=== PATIENT | male | born 1970 | race Hispanic/Latino ===

== ENCOUNTER 2017-12-27 10:43 | Inpatient (IN) | payer MEDICAID ==
[2017-12-27 11:03] VITALS: O2SAT 98
--- NOTE | 2017-12-27 12:12 | ED PDOC ---
Psych Transfer Clearance - Clearance Statement Clearance Statement: Reviewed vital signs, lab results and transfer papers. Patient clinically stable for psychiatric admission.
[2017-12-27] MEDS ORDERED: Alum-Mag Hydrox-Simethicone Susp (30 mL) PO PRN (13:39)
[2017-12-27] MEDS ORDERED: DiphenhydrAMINE 50 mg/ml Inj IM PRN (13:39)
[2017-12-27] MEDS ORDERED: Magnesium Hydroxide Susp 30 ml UD PO PRN (13:39)
--- NOTE | 2017-12-27 14:19 | PCM.PSYCH ---
Initial Psychiatric Evaluation - Initial Psychiatric Evaluation Type of Admission: Voluntary Legal Status: Capacity Chief Complaint (in patient's own words): I wanted t cut my wrist Patient's Reaction to Hospitalization: pt requested help History of Present Illness and Precipitating Events: pt is 47 ys old male without previous formal psychiatric diagnosis or treatment, presented to ER with depression and suicidal ideation in the context of going through a divorce, loosing contact with his children and loosing his job, pt has been feeling increasingly lonely and having financial difficulties pt poor sleep, poor appetite , low energy, hopelessness and helplessness, low motivation, on day of evaluation pt started having suicidal thoughts with plan to cut his wrist, on the unit pt reported passive suicidal ideation without active plan, reported non command auditory hallucinations, denied homicidal ideation denied substance use Current Medications: Active Medications Generic Name Dose Route Start Last Admin Trade Name Freq PRN Reason Stop Dose Admin Acetaminophen 650 mg 12/27/17 13:39 Tylenol 325mg Tab PO Q4 PRN Pain, moderate (4-7) Al Hydrox/Mg Hydrox/Simethicone 30 ml 12/27/17 13:39 Maalox Plus 30 Ml PO Q4 PRN Dyspepsia Diphenhydramine HCl 50 mg 12/27/17 13:39 Benadryl IM Q6 PRN Extrapyramidal S/S Unable PO Diphenhydramine HCl 50 mg 12/27/17 13:39 Benadryl PO Q6 PRN Extrapyramidal Symptoms Escitalopram Oxalate 10 mg 12/27/17 22:00 Lexapro PO HS ASHISH Haloperidol 5 mg 12/27/17 13:39 Haldol PO Q6 PRN Agitation Haloperidol Lactate 5 mg 12/27/17 13:39 Haldol IM Q6 PRN Agitation, Unable to Take PO Lorazepam 2 mg 12/27/17 13:39 Ativan IM Q6 PRN Anxiety/Agitation,Unable PO Lorazepam 2 mg 12/27/17 13:39 Ativan PO Q6 PRN Anxiety/Agitation Magnesium Hydroxide 30 ml 12/27/17 13:39 Milk Of Magnesia PO HS PRN Constipation Trazodone HCl 100 mg 12/27/17 22:00 Desyrel PO HS ASHISH Past Psychiatric History - Past Psychiatric History Explanation of prior treatment: none History of ETOH/Drug Use: denied Pertinent Medical Hx (Current Medical&Sleep Prob, Allergies): Allergies Allergy/AdvReac Type Severity Reaction Status Date / Time ibuprofen Allergy ITCHING Verified 12/27/17 11:17 naproxen [From Naprosyn] Allergy ITCHING Verified 12/27/17 11:17 Cyclobenzaprine [Cyclobenzaprine HCl] 10 mg PO TID PRN #15 tab 12/30/14 Cyclobenzaprine HCl [Flexeril] 10 mg PO Q8 #15 tab 03/12/15 Mental Status Examination - Personal Presentation Personal Presentation: Looks older than stated age - Affect Affect: Constricted, Depressed - Motor Activity Motor Activity: Psychomotor Retardation - Reliability in Providing Information Reliability in Providing Information: Poor, due to altered mood - Speech Speech: Relevant - Mood Mood: Depressed, Anxious - Formal Thought Process Formal Thought Process: Hallucinations Additional comments: non command auditory hallucinations - Hallucinations/Delusions Hallucinations: Auditory - Obsessions/Compulsions Obsessions: No Compulsions: No - Cognitive Functions Orientation: Person Sensorium: Alert Attention/Concentration: Attentive - Risk Risk: Suicidal, Diminished functioning - Strength & Assets Inventory Strength & Assets Inventory: Life experience - Limitations Additional comments: poor social support DSM 5 DX - DSM 5 DSM 5 Diagnosis: major depression severe with psychotic features - Recommended/Plan of Treatment Treatment Recommendations and Plan of Treatment: start lexpro 10mg daily start trazodone 100mg qhs CBT group and supportive therapy internal medicine consult disposition planning
--- NOTE | 2017-12-27 14:53 | CP.PCM.CON ---
History of Present Illness - History of Present Illness History of Present Illness: 47 y/o male with PMH spinal stenosis and sciatica admitted to psych for depression and suicidal thoughts. Medicine consulted . History obtained from patient . As per patient he has been feeling depressed lately due to his divorce and not being able to see his children ,having suicidal thoughts . He decided to ask or help by going to [facility].He denies any prior history pof depression and psychiatric condition. At present feeling better. Denies any chest pain . COB, palpitations, PND, orthopnea , urinary sx or changes in bowel movements. Denies any fever , chills, cough, recent weight loss or weight gain. He used to be 600 lbs and has lost almost 400 lbs since his gastric bypass surgery in 2000 States that his left calf seems a little wider but denies any calf tenderness Allergies ; naproxen, Motrin PMH ; spinal stenosis , sciatica Medications ; none Surgery : gastric bypass surgery 2000 ,abdominal hernia repair , right rotator cuff surgery Family history ; None Social history ; , has 2 children 28 and 26 years old, lives with sister in [facility], unemployed , smokes 1/2 PPD , denies ETOH or drug abuse ROS; 10 point ROS negative except above Code sttaus : full Review of Systems - Review of Systems All systems: reviewed and no additional remarkable complaints except Past Patient History - Infectious Disease Hx of Infectious Diseases: None - Tetanus Immunizations Tetanus Immunization: Unknown - Past Medical History & Family History Past Medical History?: Yes Past Family History: Reviewed and not pertinent - Past Social History Smoking Status: Heavy Smoker > 10 Cigarettes Daily Chewing Tobacco Use: No Cigar Use: No Alcohol: None Drugs: Denies Home Situation {Lives}: With Family Domestic Violence: Negative - CARDIAC Hx Cardiac Disorders: No - PULMONARY Hx Respiratory Disorders: No - NEUROLOGICAL Hx Neurological Disorder: No - RENAL Hx Chronic Kidney Disease: No - ENDOCRINE/METABOLIC Hx Endocrine Disorders: No - HEMATOLOGICAL/ONCOLOGICAL Hx Blood Disorders: No - INTEGUMENTARY Hx Dermatological Problems: No - MUSCULOSKELETAL/RHEUMATOLOGICAL Other/Comment: spinal stenosis - GASTROINTESTINAL Hx Gastrointestinal Disorders: No - GENITOURINARY/GYNECOLOGICAL Hx Genitourinary Disorders: No - PSYCHIATRIC Hx Psychophysiologic Disorder: No Hx Substance Use: No - SURGICAL HISTORY Hx Surgeries: Yes Hx Herniorrhaphy: Yes Hx Orthopedic Surgery: Yes (rt shoulder) - ANESTHESIA Hx Anesthesia: Yes Hx Anesthesia Reactions: No Meds Allergies/Adverse Reactions: Allergies Allergy/AdvReac Type Severity Reaction Status Date / Time ibuprofen Allergy ITCHING Verified 12/27/17 11:17 naproxen [From Naprosyn] Allergy ITCHING Verified 12/27/17 11:17 - Medications Medications: Current Medications Acetaminophen (Tylenol 325mg Tab) 650 mg PO Q4 PRN PRN Reason: Pain, moderate (4-7) Al Hydrox/Mg Hydrox/Simethicone (Maalox Plus 30 Ml) 30 ml PO Q4 PRN PRN Reason: Dyspepsia Diphenhydramine HCl (Benadryl) 50 mg IM Q6 PRN PRN Reason: Extrapyramidal S/S Unable PO Diphenhydramine HCl (Benadryl) 50 mg PO Q6 PRN PRN Reason: Extrapyramidal Symptoms Escitalopram Oxalate (Lexapro) 10 mg PO HS ASHISH Haloperidol (Haldol) 5 mg PO Q6 PRN PRN Reason: Agitation Haloperidol Lactate (Haldol) 5 mg IM Q6 PRN PRN Reason: Agitation, Unable to Take PO Lorazepam (Ativan) 2 mg IM Q6 PRN PRN Reason: Anxiety/Agitation,Unable PO Lorazepam (Ativan) 2 mg PO Q6 PRN PRN Reason: Anxiety/Agitation Magnesium Hydroxide (Milk Of Magnesia) 30 ml PO HS PRN PRN Reason: Constipation Trazodone HCl (Desyrel) 100 mg PO HS ASHISH Physical Exam - Constitutional Appears: Non-toxic, No Acute Distress - Head Exam Head Exam: ATRAUMATIC, NORMAL INSPECTION, NORMOCEPHALIC - Eye Exam Eye Exam: EOMI, Normal appearance, PERRL Pupil Exam: NORMAL ACCOMODATION - ENT Exam ENT Exam: Mucous Membranes Moist, Normal Exam - Neck Exam Neck exam: Positive for: Full Rom, Normal Inspection - Respiratory Exam Respiratory Exam: Clear to Auscultation Bilateral, NORMAL BREATHING PATTERN. absent: Rales, Rhonchi, Wheezes - Cardiovascular Exam Cardiovascular Exam: REGULAR RHYTHM, RRR, +S1, +S2. absent: JVD - GI/Abdominal Exam GI & Abdominal Exam: Normal Bowel Sounds, Soft. absent: Distended, Guarding, Rebound, Tenderness - Rectal Exam Rectal Exam: Deferred - Extremities Exam Extremities exam: Positive for: normal capillary refill, normal inspection, pedal pulses present. Negative for: calf tenderness, pedal edema, tenderness - Back Exam Back exam: NORMAL INSPECTION - Neurological Exam Neurological exam: Alert, CN II-XII Intact, Oriented x3, Reflexes Normal - Psychiatric Exam Psychiatric exam: Flat Affect - Skin Skin Exam: Dry, Normal Color, Warm Results - Vital Signs Recent Vital Signs: Last Vital Signs Temp 98.2 F 12/27/17 11:02 Pulse 67 12/27/17 11:02 Resp 18 12/27/17 13:23 BP 106/53 L 12/27/17 11:02 Pulse Ox 98 12/27/17 11:02 Assessment & Plan - Assessment and Plan (Free Text) Assessment: 47 y/o male with PMH spinal stenosis and sciatica admitted to psych for depression and suicidal thoughts. 1. Depression management as per psycvh check TSH, RPR , CBC CT head 2. Tobacco use disorder Nicotine patch 3. Sciatica Tylenol PRN 4. r/o DVt to LLE check doppler US of LLE
--- NOTE | 2017-12-27 17:56 | PCM.BM ---
<Beata Carcamo - Last Filed: 12/27/17 17:55> Treatment Plan Problems - Problems identified on initial assessmt Feelings of Worthlessness Date Initiated: 12/27/17 Time Initiated: 17:55 Assessment reference: NA Status: Active Treatment assets and liabiliti Patient Assests: adapts well, cooperative, ADL independent Patient Liabilities: financial problems, relationship conflicts, medical problems - Milieu Protocol Maintain good personal hygiene: daily Encourage regular showers, daily Remind patient to perform daily oral care, daily Assist patient to perform ADL's Maintain personal safety: daily Educate patient to report safety concerns to staff, daily Monitor environment for contraband/sharps, every shift Educate patient to report safety concerns to staff, every shift Monitor environment for contraband/sharps Medication safety: Monitor for expected outcome, potential side effects: daily, every shift, Assess barriers to learning: daily, every shift, Assess readiness for medication education: daily, every shift Milieu Narrative: start lexpro 10mg daily start trazodone 100mg qhs CBT group and supportive therapy internal medicine consult disposition planning Discharge/Continuing Care - Treatment Team Participation Patient/Family/SO Statement: start lexpro 10mg daily start trazodone 100mg qhs CBT group and supportive therapy internal medicine consult disposition planning <Kate He - Last Filed: 12/28/17 15:02> Treatment assets and liabiliti Patient Assests: cooperative, insightful, motivated, self-reliant, good past tx response, cognitively intact Patient Liabilities: medical problems Family Contact Family involvement: Family/SO is involved Family contact: Patient agrees to contact, Family has been contacted by patient, Telephone contact initiated by staff - Goals for Treatment Patient goals for treatment: Patient to continue stabilization on 3NP through medication management and group/supportive therapy to address sxs of depression and eliminate SI to improve fucntioning and ensure saftey in the community/. Patient to be encouraged to attend groups regularly to promote self-awareness, compliance, and improve insight,coping skills and self-esteem. Patient to be provided with referral for appropriate level of aftercare to reduce risk of future hospitalizations and ensure safety in the community. Discharge/Continuing Care - Education Needs Education Needs: Family Medication, Family Diagnosis/Disease Process, Family Coping Skills, Family Community resources, Family Aftercare Safety Plan, Patient Medication, Patient Diagnosis/Disease Process, Patient Coping Skills, Patient Community resources, Patient Aftercare Safety Plan - Discharge Discharge Criteria: Tolerates medication w/o severe side effects, Free of Suicidal thoughts, Normal sleep pattern, Ability to care for self, Reduction of target symptoms Discharge to:: Home, With Family - Treatment Team Participation Discussed with Family/SO: No Was Patient/Family/SO present at Treatment Team Meeting: Yes <Hola Serrano - Last Filed: 12/29/17 13:51> - Diagnosis (1) Depression Status: Acute Interventions: psychotherapy, pharmacotherapy 12/29/17 13:50
[2017-12-28 08:26] LABS: T4 7.09 ug/dl (5.5-11.0)
--- NOTE | 2017-12-28 13:27 | PCM.PYCHPN ---
Psychiatric Progress Note - Psychiatric Progress Note Patient seen today, length of contact: pt evaluated discussed with team chart reviewed Patient Chief Complaint: I still feel down Problems Identified/Issues Discussed: pt evaluated with treatment team, continues to report poor sleep with early insomnia, presenting with depressed mood and affect, low energy and low motivation discussed increasing trazodone and lexapro gradually, CBT provided, encouraged pt to attend groups pt with passive suicidal ideation, no plan or intent on the unit, denied command halluciantions, denied homicidal ideation Medical Problems: none DSM 5 Symptoms Update: major depression recurrent severe Medication Change: Yes (increase trazodone) Medical Record Reviewed: Yes Mental Status Examination - Cognitive Function Orientation: Person, Place, Situation Memory: Intact Attention: WNL Concentration: WNL Association: WNL Decription of patient's judgement and insights: partial insight fair judgment - Mood Mood: Depressed, Anxious - Affect Affect: Constricted, Depressed - Speech Speech: Soft - Formal Thought Process Formal Thought Process: Circumstantial - Suicidal Ideation Suicidal Ideation: No - Homicidal Ideation Homicidal Ideation: No Goal/Treatment Plan - Goal/Treatment Plan Need for Continued Stay: Severe depression anxiety, Discharge may exacerbated symptoms Progress Toward Problem(s) and Goals/Treatment Plan: lexpro 10mg daily/increase gradually increase trazodone 150mg qhs CBT group and supportive therapy internal medicine consult, follow up on results of ultra sound disposition planning
--- NOTE | 2017-12-28 13:44 | US ---
Date of service: 12/28/2017 HISTORY: r/o DVT. PRIORS: None. FINDINGS: 2-D, color and duplex Doppler analysis of the lower extremity venous circulation using routine protocol from the femoral veins through the popliteal veins. Venous compressibility: Normal. Flow and augmentation patterns: Normal. Visualized veins upper third of calf: Normal. Waters cyst: None. Morphologically, unremarkable lymph node(s) solitary inguinal lymph node 0.7 x 1.6 x 3.6 cm IMPRESSION: No sonographic or Doppler evidence for DVT in left lower extremity.
[2017-12-29] MEDS ORDERED: Venlafaxine 37.5 mg ER Cap PO STA (12:41)
--- NOTE | 2017-12-29 13:57 | PCM.PYCHPN ---
Psychiatric Progress Note - Psychiatric Progress Note Patient seen today, length of contact: pt evaluated discussed with team chart reviewed Patient Chief Complaint: I feel I have no energy and no motivation Problems Identified/Issues Discussed: pt evaluated . presenting with depressed mood and affect, low energy and poor motivation, continues to report poor sleep with early insomnia, discussed with pt increasing dose of trazodone also discussed cros tapering lexapro with effexor , for better energy level CBT provided, encouraged pt to attend groups pt denied current suicidal ideation or intent on the unit, denied command hallucinations, denied homicidal ideation Medical Problems: none DSM 5 Symptoms Update: major depression Medication Change: Yes (start effexor) Medical Record Reviewed: Yes Mental Status Examination - Cognitive Function Orientation: Person, Place, Situation Memory: Intact Attention: WNL Concentration: WNL Association: WNL Decription of patient's judgement and insights: partial insight fair judgment - Mood Mood: Depressed, Anxious - Affect Affect: Constricted, Depressed - Speech Speech: Soft - Formal Thought Process Formal Thought Process: Circumstantial - Suicidal Ideation Suicidal Ideation: No - Homicidal Ideation Homicidal Ideation: No Goal/Treatment Plan - Goal/Treatment Plan Need for Continued Stay: Severe depression anxiety, Discharge may exacerbated symptoms Progress Toward Problem(s) and Goals/Treatment Plan: discontinue lexpro starteffexor 37.5mg daily increase trazodone 200mg qhs CBT group and supportive therapy follow up on results of ultra sound , negative no current pathology disposition planning
[2017-12-30] MEDS: Venlafaxine 37.5 mg ER Cap PO SCH (08:49)
--- NOTE | 2017-12-30 15:16 | PCM.PYCHPN ---
Psychiatric Progress Note - Psychiatric Progress Note Patient seen today, length of contact: pt evaluated discussed with team chart reviewed Patient Chief Complaint: I am alright Problems Identified/Issues Discussed: pt evaluated . reported better mood, presenting with less depressed affect, attending groups, no reported side effects ,pt agreed to start [facility] outpatient on discharge pt denied current suicidal ideation or intent on the unit, denied command hallucinations, denied homicidal ideation Medical Problems: none DSM 5 Symptoms Update: depression alcohol; abuse Medication Change: No Medical Record Reviewed: Yes Mental Status Examination - Cognitive Function Orientation: Person, Place, Situation Memory: Intact Attention: WNL Concentration: WNL Association: WNL Decription of patient's judgement and insights: partial insight fair judgment - Mood Mood: Depressed, Anxious - Affect Affect: Constricted, Depressed - Speech Speech: Soft - Formal Thought Process Formal Thought Process: Circumstantial - Suicidal Ideation Suicidal Ideation: No - Homicidal Ideation Homicidal Ideation: No Goal/Treatment Plan - Goal/Treatment Plan Need for Continued Stay: Severe depression anxiety, Discharge may exacerbated symptoms Progress Toward Problem(s) and Goals/Treatment Plan: effexor 37.5mg daily trazodone 200mg qhs CBT group and supportive therapy disposition planning
[2017-12-31] MEDS: Venlafaxine 37.5 mg ER Cap PO SCH (09:20)
--- NOTE | 2017-12-31 10:41 | PCM.PYCHPN ---
Psychiatric Progress Note - Psychiatric Progress Note Patient seen today, length of contact: Pt evaluated, case discussed w/ team, chart reviewed Patient Chief Complaint: "I'm getting better." Problems Identified/Issues Discussed: Patient continues to report feeling depressed, but states that his mood is improving. He denies acute AH/VH/SI/HI. He denies adverse effects to medications. He is more hopeful for the future. Medication Change: No Medical Record Reviewed: Yes Consults ordered or reviewed: Medicine consult Mental Status Examination - Cognitive Function Orientation: Person, Place, Situation, Time Memory: Intact Attention: WNL Concentration: WNL Association: WNL Fund of Knowledge: [facility] Decription of patient's judgement and insights: Improving I/J - Mood Mood: Depressed - Affect Affect: Constricted - Speech Speech: Appropriate - Formal Thought Process Formal Thought Process: No Impairment Psychotic Thoughts and Behaviors: No AH/VH/paranoia/delusions - Suicidal Ideation Suicidal Ideation: No - Homicidal Ideation Homicidal Ideation: No Goal/Treatment Plan - Goal/Treatment Plan Need for Continued Stay: Severe depression anxiety, Discharge may exacerbated symptoms Progress Toward Problem(s) and Goals/Treatment Plan: Major Depressive Disorder -Continue current medications -Medicine consult -Individual and group therapy -Psychoeducation -Disposition planning
[2018-01-01] MEDS: Venlafaxine 37.5 mg ER Cap PO SCH (09:15)
--- NOTE | 2018-01-01 09:44 | PCM.PYCHPN ---
Psychiatric Progress Note - Psychiatric Progress Note Patient seen today, length of contact: Pt evaluated, case discussed w/ team, chart reviewed Patient Chief Complaint: "I'm getting better." Problems Identified/Issues Discussed: Patient reports that his mood is improving. He denies acute AH/VH/SI/HI. He denies adverse effects to medications. He is more hopeful for the future. Medication Change: No Medical Record Reviewed: Yes Consults ordered or reviewed: Medicine consult Mental Status Examination - Cognitive Function Orientation: Person, Place, Situation, Time Memory: Intact Attention: WNL Concentration: WNL Association: WNL Fund of Knowledge: WN Decription of patient's judgement and insights: Improving I/J - Mood Mood: Depressed - Affect Affect: Broad - Speech Speech: Appropriate - Formal Thought Process Formal Thought Process: No Impairment Psychotic Thoughts and Behaviors: No AH/VH/paranoia/delusions - Suicidal Ideation Suicidal Ideation: No - Homicidal Ideation Homicidal Ideation: No Goal/Treatment Plan - Goal/Treatment Plan Need for Continued Stay: Severe depression anxiety Progress Toward Problem(s) and Goals/Treatment Plan: Major Depressive Disorder -Continue current medications -Medicine consult -Individual and group therapy -Psychoeducation -Disposition planning Estimated Date of D/C: 01/02/18
[2018-01-02] MEDS: Venlafaxine 37.5 mg ER Cap PO SCH (08:48)
--- NOTE | 2018-01-02 11:41 | PCM.PYCHPN ---
Psychiatric Progress Note - Psychiatric Progress Note Patient seen today, length of contact: Pt evaluated, case discussed w/ team, chart reviewed Patient Chief Complaint: I am alright, but I get some headaches Problems Identified/Issues Discussed: pt evaluated . reported feeling better with effexor, no reported side effects, motivational therapy provided in reference to effect of alcohol use on current mental status,pt agreed to start [facility] program on discharge pt denied current suicidal ideation or intent on the unit, denied command hallucinations, denied homicidal ideation Medical Problems: none DSM 5 Symptoms Update: alcohol induced mood disorder alcohol use disorder depression Medication Change: No Medical Record Reviewed: Yes Mental Status Examination - Cognitive Function Orientation: Person, Place, Situation, Time Memory: Intact Attention: WNL Concentration: WNL Association: WNL Fund of Knowledge: WNL - Mood Mood: Neutral - Affect Affect: Constricted - Speech Speech: Appropriate - Formal Thought Process Formal Thought Process: No Impairment - Suicidal Ideation Suicidal Ideation: No - Homicidal Ideation Homicidal Ideation: No Goal/Treatment Plan - Goal/Treatment Plan Need for Continued Stay: Severe depression anxiety Progress Toward Problem(s) and Goals/Treatment Plan: effexor 37.5mg daily trazodone 200mg qhs CBT , motivational, group and supportive therapy Estimated Date of D/C: 01/03/18
[2018-01-03] MEDS: Venlafaxine 37.5 mg ER Cap PO SCH (08:46)
[2018-01-03 09:06] VITALS: BP 104/61; PULSE 69; RESP 17; TEMP 96.9
--- NOTE | 2018-01-03 12:19 | PCM.PYCHDC ---
Mental Status Examination - Mental Status Examination Orientation: Person, Place, Situation Memory: Intact Mood: Neutral Affect: Broad Speech: Appropriate Attention: WNL Concentration: WNL Association: WNL Fund of Knowledge: WNL Formal Thought Process: No Impairment Description of patient's judgement and insight: partial insight fair judgment Psychotic Thoughts and Behaviors: pt denied psychotic symptoms, non elicited Suicidal Ideation: No Current Homicidal Ideation?: No Discharge Summary - Discharge Note Reason for Hospitalization: pt is 47 ys old male without previous formal psychiatric diagnosis or treatment, presented to ER with depression and suicidal ideation in the context of going through a divorce, loosing contact with his children and loosing his job, pt has been feeling increasingly lonely and having financial difficulties pt poor sleep, poor appetite , low energy, hopelessness and helplessness, low motivation, on day of evaluation pt started having suicidal thoughts with plan to cut his wrist, on the unit pt reported passive suicidal ideation without active plan, reported non command auditory hallucinations, denied homicidal ideation denied substance use Consultations:: List each consultation separately and include: 1. Reason for request. 2. Findings. 3. Follow-up Summary of Hospital Course include:: 1. Description of specific treatment plan utilized for patients during their course of treatmen. 2. Summarize the time- course for resolution of acute symptoms and/or regressed behaviors. 3. Describe issues identified and worked on during hospitalization. 4. Describe medication utilized. 5. Describe medical problems identified and treated. 6. Reassessment of suicide risk Summary of Hospital Course: pt onadmission presented with depressed mood and affect, low energy, pt was started on lexapro with poor effect, lexpro was cross titrated with effexor, xr 37.5mg pt gradually presented with brighter mood and affect, motivational therapy was provided in reference to alcohol use pt was compliant with treatment, attended groups, denied side effects of medications, on discharge mental status was stable, pt denied any current suicidal or homicidal ideation denied perceptual disturbances, follow up arranged by social media marketing specialist at [facility] - Diagnosis (1) Depression Current Visit: Yes Status: Acute - Final Diagnosis (DSM 5) Condition upon Discharge: GOOD DSM 5: major depression alcohol abuse Disposition: HOME/ ROUTINE Follow-up Treatment Plan: effexor 37.5mg daily trazodone 200mg qhs CBT , motivational, group and supportive therapy Prescriptions/Medication Reconciliation: traZODone [Desyrel] 200 mg PO HS 30 Days #60 tab Venlafaxine [Effexor XR] 37.5 mg PO DAILY 30 Days #30 cer - Antipsychotic Medications Pt discharged on 2 or more routine antipsychotic medications: No
== END 2018-01-03 12:45 | disposition home or self-care (01) | DRG 885 ==
LOC: H.ER 10:43 → H.PSYCH 12:11
PROVIDERS: ADMIT Psychiatry & Neurology Psychiatry; ATTEND Psychiatry & Neurology Psychiatry
PROC: GZHZZZZ Group Psychotherapy (ICD-10-PCS; principal; 2017-12-27)
PROC: GZ51ZZZ Individual Psychotherapy, Behavioral (ICD-10-PCS; 2017-12-27)
DX: F33.3 Major depressive disorder, recurrent, severe with psychotic symptoms (principal); R45.851 Suicidal ideations; F10.14 Alcohol abuse with alcohol-induced mood disorder; G47.00 Insomnia, unspecified; M54.30 Sciatica, unspecified side; Z72.0 Tobacco use; Z98.84 Bariatric surgery status; M48.00 Spinal stenosis, site unspecified; R00.2 Palpitations; R06.01 Orthopnea; R19.4 Change in bowel habit